=== PATIENT | female | born 1995 | race African-American/Black ===

== ENCOUNTER 2017-02-04 16:19 | Emergency (ER) | payer OTHER ==
[~2017-02-04] VITALS: Ht 167.6 cm; Wt 79.8 kg
[~2017-02-04 16:19] MED LIST: ACYCLOVIR PO; ADDERALLXR PO; ALBUTEROL 0.5ML INH; AMOXICILLIN500 M1 PO; ATARAX PO; BACTRIM DS TABL1 TA1 PO; DULCOLAX5 MG PO; ELOCON15 G1 TP; ERYTHROMYCIN O3.5 GM; FERROUS GLUCON325 M1 PO; FLONASE16 GM; FOLIC ACID1 MG PO; IBUPROFEN PO; LAMICTAL25 MG PO; LORTUSS EX PO; LOTRIMIN 1% CR30 GM TOP; NAPROSYN500 MG PO; NO MEDICATIONS; ORTHO TRI-7 DAYS X PO; ORTHO-CYCLEN1 TAB PO; PHENERGAN25 MG PO; PRILOSEC PO; REMERON PO; REMERON15 MG PO; TRIAMCINOLONE A15 G8 TP; TYLENOL #3 PO; VEETIDS 500500 M1 PO; VYVANCE PO; VYVANSE50 MG PO; ZOLOFT50 MG PO; [UNRECOGNIZED DRUG - OTHER] PO; [UNRECOGNIZED DRUG - REMARK]
[2017-02-04] MEDS ORDERED: IRON18 MG PO (16:37)
[2017-02-04 17:47] LABS: BASOPHIL% 0.5 % (0-2.5); EOSINOPHIL% 0.7 % (0.0-7.0); HEMATOCRIT 29.8 % (35.0-45.0); HEMOGLOBIN 9.1 gm/dL (12.0-16.0); LYMPHOCYTE# 2.6 X10e3 (1.0-3.5); LYMPHOCYTE% 45.3 % (17.0-45.0); MEAN CELL VOLUME 71.3 FL (83-96); MEAN CORPUSCULAR HEMOGLOBIN 21.8 PG (28-34); MEAN CORPUSCULAR HGB CONC 30.6 g/dL (30-36); MEAN PLATELET VOLUME 9.2 FL (6.5-11.5); MONOCYTE# 0.5 X10e3 (0-1.0); MONOCYTE% 8.4 % (3.0-12.0); NEUTROPHIL# 2.5 X10e3 (1.5-7.1); NEUTROPHIL% 45.1 % (40-75); PLATELET COUNT 238 X10e3 (140-420); RED BLOOD COUNT 4.18 X10e (3.90-5.30); RED CELL DISTRIBUTION WIDTH 26.8 % (11.0-15.5); URINE SOURCE CLEAN CATCH; WHITE BLOOD COUNT 5.6 X10e3 (4.0-10.5)
[2017-02-04 17:49] LABS: URINE APPEARANCE SL CLOUDY; URINE BILIRUBIN NEG (NEG); URINE BLOOD 3+ (NEG); URINE COLOR YELLOW; URINE GLUCOSE NEG (NORM); URINE KETONE NEG (NEG); URINE LEUKOCYTE ESTERASE NEG (NEG); URINE NITRATE NEG (NEG); URINE PROTEIN TRACE (NEG); URINE SPECIFIC GRAVITY >=1.030 (1.003-1.035); URINE UROBILINOGEN 0.2 MG/DL (NORM)
[2017-02-04 17:57] LABS: DIFF IND NO
[2017-02-04 17:58] LABS: MICRO INDICATED? YES
[2017-02-04 18:03] LABS: CULTURE INDICATED? NO; URINE BACTERIA NEG (NEG); URINE RBC 100-200 /[HPF] (0-2); URINE WBC 0-2 /[HPF] (0-5)
[2017-02-04 18:16] LABS: ALBUMIN SERUM 4.3 g/dL (3.5-5.0); BILIRUBIN, DIRECT 0.1 mg/dL (0.0-0.2); BILIRUBIN,INDIRECT 0.3 mg/dL (0.0-0.9); BILIRUBIN,TOTAL 0.4 mg/dL (0.2-2.0); BUN/CREATININE RATIO 12.5; CALCIUM SERUM 9.8 mg/dL (8.4-10.2); CREATININE SERUM 0.8 mg/dL (0.6-1.4); GLOM FILT RATE Estimated 120.5 mL/min (>60); POTASSIUM 3.4 mmol/L (3.5-5.1)
== END 2017-02-04 18:53 | disposition home or self-care (01) ==
LOC: SED 16:19
PROVIDERS: Nurse Practitioner Family
DX: R10.32 Left lower quadrant pain (principal)
CPT/HCPCS: 36415; 80048; 80076; 81003; 83690; 84703; 85025; 96374; 99284; J1885